=== PATIENT | male | born 1955 | race Caucasian/White ===

== ENCOUNTER 2021-01-09 13:07 | Emergency (ER) | payer MEDICARE, BC ==
[~2021-01-09] VITALS: Ht 182.9 cm; Wt 84.1 kg
[2021-01-09 13:39] VITALS: BP 30/88
[2021-01-09 14:25] LABS: BASOPHILS # (AUTO) 0.1 X10'3 (0-0.2); BASOPHILS % (AUTO) 0.7 % (0-1); EOSINOPHILS # (AUTO) 0.1 X10'3 (0-0.9); EOSINOPHILS % (AUTO) 1.5 % (0-6); HEMATOCRIT 38.2 % (42.0-52.0); HEMOGLOBIN 13.2 g/dl (14.0-17.9); LYMPHOCYTES # (AUTO) 1.3 X10'3 (1.1-4.8); LYMPHOCYTES % (AUTO) 16.4 % (21-51); MEAN CORPUSCULAR HEMOGLOBIN 32.9 PG (27.0-31.0); MEAN CORPUSCULAR HGB CONC 34.5 g/dL (33.0-36.5); MEAN CORPUSCULAR VOLUME 95.3 FL (78-98); MEAN PLATELET VOLUME 7.8 FL (7.4-10.4); MONOCYTES # (AUTO) 0.5 X10'3 (0-0.9); MONOCYTES % (AUTO) 6.3 % (2-12); NEUTROPHILS # (AUTO) 5.8 X10'3 (1.8-7.7); NEUTROPHILS % (AUTO) 75.1 % (42-75); PLATELET COUNT 208 X10'3 (140-440); RED BLOOD COUNT 4.01 X10'6 (4.70-6.10); RED CELL DISTRIBUTION WIDTH 14.6 % (11.5-14.5); WHITE BLOOD COUNT 7.8 X10'3 (4.5-11.0)
[2021-01-09 14:38] LABS: ALBUMIN 3.9 G/DL (3.4-5.0); ANION GAP 11 (8-16); BILIRUBIN,TOTAL 1.7 MG/DL (0.1-1.0); BLOOD UREA NITROGEN 19 MG/DL (7-18); BUN/CREATININE RATIO 17.1 (5.4-32.0); CHLORIDE 106 MMOL/L (99-107); CREATININE 1.11 MG/DL (0.60-1.10); GLUCOSE 112 MG/DL (70-104); POTASSIUM 3.9 MMOL/L (3.5-5.1); SODIUM 143 MMOL/L (135-145); TOTAL CARBON DIOXIDE 26.4 MMOL/L (24-32); TOTAL PROTEIN 7.2 G/DL (6.4-8.2); eGFR 66 ML/MIN
[2021-01-09 14:39] LABS: ALANINE AMINOTRANSFERASE 23 U/L (12-78); ALBUMIN/GLOBULIN RATIO 1.2 (1.1-1.5); ALKALINE PHOSPHATASE 58 IU/L (46-116); ASPARTATE AMINO TRANSFERASE 39 U/L (10-37)
== END 2021-01-09 15:59 | disposition home or self-care (01) ==
LOC: ER 13:08
DX: R07.89 Other chest pain (principal); I10 Essential (primary) hypertension; E78.00 Pure hypercholesterolemia, unspecified; M19.90 Unspecified osteoarthritis, unspecified site; Z72.89 Other problems related to lifestyle; Z87.81 Personal history of (healed) traumatic fracture
CPT/HCPCS: 36415; 71045; 80053; 83880; 84484; 85025; 93005; 99285

== ENCOUNTER 2024-11-28 11:24 | Emergency (ER) | payer MEDICARE, BC ==
[~2024-11-28] VITALS: Ht 182.9 cm; Wt 90.7 kg
--- NOTE | 2024-11-28 11:45 | Physician Documentation ---
History of Present Illness ~ Chief Complaint: Head Injury Stated Complaint: HEAD LAC HEAD PAIN FALL Time Seen by MD: 13:22 OK to notify your PCP?: Yes Primary Medical Doctor: Ryan Solis [employer] CONSULTANT HPI 69-year-old male presents to the emergency department complaining of left-sided headache, patient states he fell four days ago hitting his face on his lower safe, he has a large bruise, he has been taking 650 mg of aspirin 3 times a day for pain control, denies any GI bleeding. Occured: days ago Location of Pain/Injury: parietal Severity of Pain: mild Method of Injury: direct blow, fall Loss Of Consciousness: no loss of consciousness Associated Symptoms: Denies: nausea, vomiting Tetanus within 5 years?: No Medication Reconciliation Allergies: Coded Allergies: No Known Allergies (Unverified , 11/28/24) Past Medical History Past Medical History: Hypertension, Arthritis Past Surgical History: no surgical history Alcohol Use: Occasionally Lives In: Home Review of Systems All Other Systems at this time: Reviewed and Negative Constitutional: Reports: see HPI ENT: Reports: see HPI Neurological: Reports: headache Physical Exam Vital Signs: RN Vital Signs have been reviewed: Yes, Heart Rate: 102, Respi ratory Rate: 18, BP: 140/89, Pulse Oximetry: 98, Weight: 90.650 Oxygen Flow Rate: 0 Pulse Oximetry Reflects: adequate oxygenation General Appearance: alert, WD/WN, no apparent distress Head: contusions, ecchymosis, lacerations, swelling; No: active bleeding, Ng's Sign, raccoon eyes, tenderness Face: ecchymosis, tender, laceration; No: deformity, midface instability Pupils/EOM/Fundus: PERRLA, EOM intact Eye Lids: normal inspection Neck: non-tender, full range of motion Chest: no accessory muscle use, chest non-tender Back: normal inspection, no CVA tenderness, no vertebral tenderness Progress Results/Orders Results/Orders Vital Signs 11/28/24 11:28 Pulse 102 Resp 18 B/P (MAP) 140/89 Pulse Ox 98 O2 Flow Rate 0 EKG/XRAY/CT/US/VASC/MRI CT : Impression [address] [address] CAT SCAN Patient: ALAN VEE Medical Record: [id number] [facility] : 1955, Age: 69 Sex: Male Location: ER Patient Status: [facility] ER Service Date/Time: 11/28/241131 Ordering Physician: LOU VASQUEZ Exam: CT HEAD EXAM: CT CT HEAD INDICATION: FALL WITH HEADSTRIKE TECHNIQUE: CT of the head without intravenous contrast. Coronal and sagittal reformatted images are submitted. Radiation Dose : 1. Head: CT Dose: CTDI volume is 64.2 mGy. Dose-length product is 1175.2 mGy*cm The dose indicators for CT are the volume Computed Tomography (CT) Dose Index (CTDIvol) and the Dose Length Product (DLP), and are measured in units of mGy and mGy-cm, respectively. These indicators are not patient dose, but values generated from the CT scanner acquisition factors. The report includes radiation exposure data for exposures received during this examination. All CT scans at this medical facility are performed using dose modulation techniques as appropriate to a performed exam including the following: Automated exposure control was utilized; adjustment of the MA and/or KV according to patient size; and use of iterative reconstruction technique. COMPARISON: None FINDINGS: There is no evidence of acute intracranial hemorrhage, extra-axial collection, mass effect, midline shift, herniation or hydrocephalus. The ventricles, sulci and cisterns are age appropriate. The harris-white differentiation is intact. The visualized paranasal sinuses and mastoid air cells are clear. No depressed calvarial fracture. The surrounding soft tissues are unremarkable. IMPRESSION: 1. No evidence of acute intracranial abnormality. Electronically Signed by:KATHERYN DE LEON MD Date & Time: 11/28/24 1227 Dictated by: KATHERYN DE LEON MD Dictation date and time: 11/28/24 1200 Primary Care Provider: NO PRIMARY CARE PROVIDER cc: LOU VASQUEZ ~ [address] [address] CAT SCAN Patient: ALAN VEE Medical Record: [id number] [facility] : 1955, Age: 69 Sex: Male Location: ER Patient Status: [facility] ER Service Date/Time: 11/28/241131 Ordering Physician: LOU VASQUEZ Exam: CT CERVICAL SPINE EXAM: CT CT CERVICAL SPINE INDICATION: FALL WITH HEADSTRIKE EXAM DATE: 11/28/2024 12:11 PM COMPARISON: None TECHNIQUE: Noncontrast axial CT images of the cervical spine were performed. Sagittal and coronal reformatted images were obtained. Radiation optimization: All CT scans at this facility use at least one of these dose optimization te chniques: automated exposure control mA and/or kV adjustment per patient size (includes targeted exams where dose is matched to clinical indication) or iterative reconstruction. Radiation Dose Information: CT Dose: CTDI volume is 23.42 mGy. Dose-length product is 141.59 mGy*cm FINDINGS: No fracture or listhesis of the cervical spine. Cervical spinal canal is congenitally narrow. There is advanced degenerative disc disease and facet arthropathy. The AP dimension of the spinal canal measures 9 mm at C3-C4, 9.5 mm at C4-C5, 7 mm at C5-C6, 8.5 mm at C6-C7. There is significant neural foraminal stenosis C3-C4 bilaterally, C4-C5 bilaterally, C5-C6 on the right, C6- C7 on the right. IMPRESSION: 1. No fracture of the cervical spine. 2. 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 Recommend follow-up nonemergent noncontrast MRI of the cervical spine for better characterization as there may be mass effect on the cervical spinal cord at multiple levels. 3. Multilevel significant neural foraminal stenosis as detailed above. These findings May correspond to bilateral upper extremity radicular symptoms. These would also be better characterized with noncontrast MRI. Electronically Signed by:HAO RODRIGUEZ MD Date & Time: 11/28/24 1229 Dictated by: HAO RODRIGUEZ MD Dictation date and time: 11/28/24 1200 Primary Care Provider: NO PRIMARY CARE PROVIDER cc: LOU VASQUEZ ~ Medical Decision Making Differential Dx:Considerations: Include: Closed head injury, Cervical spine injury, Skull facture, Fracture, Contusion, Foreign body, Laceration, Intoxication-alcohol Departure Disposition: 01 HOME / SELF CARE / HOMELESS Impression: Primary Impression: Concussion Additional Impression: Injury of head Condition: Stable Discharge Instructions: Post Concussion Syndrome,Adult, Contusion (Bruise), Head Injuries, Adult Additional Instructions: There is no evidence of intracranial hemorrhage or skull fracture, use Tylenol for pain control, please avoid overdosing on aspirin or ibuprofen after injury as a both increased bleeding Referrals: NO PRIMARY CARE PROVIDER (PCP) Prescriptions No Active Prescriptions or Reported Meds Education Educated: Patient Educated regarding: diagnosis, treatment Additional Comment Medical Screen Exam History: This is a 69-year-old male who presents due to headaches and intermittent episodes of dizziness falling striking his head on a safe after tripping four days prior, patient reported possible loss of consciousness though reports he does not take blood thinners. Patient reports pain to his posterior neck and pain to his forehead though reports no other injuries. Exam: VITALS: Reviewed and as above. GENERAL: Alert, nontoxic appearing, no apparent distress. HEENT: A proximally 3 cm healing laceration to left forehead, left lower periorbital mild ecchymosis without significant swelling, PERRLA, EOMI without pain RESPIRATORY: No increased work of breathing, no respiratory distress, speaking in full clear sentences MSE performed in triage and patient returned to ED lobby by nursing staff to await available ED room, imaging ordered due to Fence head CT and C-spine rules The note accurately reflects work and decisions made by me.GERI Hernandez 11/28/24 11:45 Signature Scribe Signature: None Attestation: Dictated by myself LOU VASQUEZP Nov 28, 2024 11:45 FRANDY REECE DO Nov 28, 2024 13:34
--- NOTE | 2024-11-28 12:29 | RADIOLOGY REPORT ---
EXAM: CT CT HEAD INDICATION: FALL WITH HEADSTRIKE TECHNIQUE: CT of the head without intravenous contrast. Coronal and sagittal reformatted images are s ubmitted. Radiation Dose : 1. Head: CT Dose: CTDI volume is 64.2 mGy. Dose-length product is 1175.2 mGy*cm The dose indicators for CT are the volume Computed Tomography (CT) Dose Index (CTDIvol) and the Dose Length Product (DLP), and are measured in units of mGy and mGy-cm, respectively. These indicators are not patient dose, but values generated from the CT scanner acquisition factors. The report includes radiation exposure data for exposures received during this examination. All CT scans at this medical facility are performed using dose modulation techniques as appropriate to a performed exam including the following: Automated exposure control was utilized; adjustment of the MA and/or KV according to patient size; and use of iterative reconstruction technique. COMPARISON: None FINDINGS: There is no evidence of acute intracranial hemorrhage, extra-axial collection, mass effect, midline s hift, herniation or hydrocephalus. The ventricles, sulci and cisterns are age appropriate. The harris-white differentiation is intact. The visualized paranasal sinuses and mastoid air cells are clear. No depressed calvarial fracture. The surrounding soft tissues are unremarkable. IMPRESSION: 1. No evidence of acute intracranial abnormality.
--- NOTE | 2024-11-28 12:32 | RADIOLOGY REPORT ---
EXAM: CT CT CERVICAL SPINE INDICATION: FALL WITH HEADSTRIKE EXAM DATE: 11/28/2024 12:11 PM COMPARISON: None TECHNIQUE: Noncontrast axial CT images of the cervical spine were performed. Sagittal and coronal ref ormatted images were obtained. Radiation optimization: All CT scans at this facility use at least one of these dose optimization techniques: automated exposure control mA and/or kV adjustment per patie nt size (includes targeted exams where dose is matched to clinical indication) or iterative reconstr uction. Radiation Dose Information: CT Dose: CTDI volume is 23.42 mGy. Dose-length product is 141.59 mGy*cm FINDINGS: No fracture or listhesis of the cervical spine. Cervical spinal canal is congenitally narrow. There i s advanced degenerative disc disease and facet arthropathy. The AP dimension of the spinal canal blaine sures 9 mm at C3-C4, 9.5 mm at C4-C5, 7 mm at C5-C6, 8.5 mm at C6-C7. There is significant neural for aminal stenosis C3-C4 bilaterally, C4-C5 bilaterally, C5-C6 on the right, C6-C7 on the right. IMPRESSION: 1. No fracture of the cervical spine. 2. Congenital narrowing of the cervical spinal canal with superimposed spondylosis and facet arthropa thy causing [id number] spinal canal stenosis at C5-C6, mild spinal canal stenosis at other leve ls. Recommend follow-up nonemergent noncontrast MRI of the cervical spine for better characterizatio n as there may be mass effect on the cervical spinal cord at multiple levels. 3. Multilevel significant neural foraminal stenosis as detailed above. These findings May correspond to bilateral upper extremity radicular symptoms. These would also be better characterized with nonc ontrast MRI.
[2024-11-28 13:43] VITALS: BP 150/96; PULSE 74; RESP 15; O2SAT 99
== END 2024-11-28 13:46 | disposition home or self-care (01) ==
LOC: ER 11:24
DX: S06.0X0A Concussion without loss of consciousness, initial encounter (principal); S09.90XA Unspecified injury of head, initial encounter; I10 Essential (primary) hypertension; W19.XXXA Unspecified fall, initial encounter; Y93.89 Activity, other specified; Y92.89 Other specified places as the place of occurrence of the external cause; Y99.8 Other external cause status
CPT/HCPCS: 70450; 72125; 99284

== ENCOUNTER 2025-05-09 14:13 | Emergency (ER) | payer MEDICARE, BC ==
[~2025-05-09] VITALS: Ht 182.9 cm; Wt 88.0 kg
--- NOTE | 2025-05-09 14:32 | Physician Documentation ---
History of Present Illness ~ Chief Complaint: Mechanical Fall Stated Complaint: FALL/HEAD STRIKE Time Seen by MD: 14:31 Primary Medical Doctor: Ryan Solis NP Mode of Arrival: EMS HPI 70-year-old male presenting with a fall and head injury. He tells me was walking his dog, was rushing across the street, when he tripped and fell, landing on his face. He has multiple lacerations to his face. No definite loss of consciousness. He currently denies having a significant headache or other pain. He denies any arm or leg injuries. Unknown last tetanus shot Tetanus within 5 Years?: No Medication Reconciliation Allergies: Coded Allergies: No Known Allergies (Unverified , 11/28/24) Past Medical History Past Medical History: Hypertension, Arthritis Past Surgical History: no surgical history Alcohol Use: Occasionally Lives In: Home Review of Systems Neurological: Denies: headache Integumentary: Reports: laceration(s) Physical Exam Vital Signs: Heart Rate: 71, Respiratory Rate: 16, BP: 102/70, Pulse Oximetry: 97, Weight: 88.000 Oxygen Flow Rate: 0 Physical Exam General: This is a pleasant calm older man HEENT: The patient has several lacerations to his face There is a 3 cm full-thickness laceration to the forehead between the eyes, no active bleeding This is a 0.5 cm superficial laceration of the bridge of the nose, no active bleeding There is a 0.5 cm stellate laceration to the central chin, no active bleeding Heart: Regular rate and rhythm, normal-appearing peripheral perfusion Lungs: normal work of breathing, normal oxygen saturation on room air Neuro: Alert and oriented Psychiatric: Calm and cooperative with exam Procedures Laceration Repair : Location: Multiple lacerations to the face Anesthesia: none Prep: irrigated by nurse Foreign Body: not identified Repaired: skin Wound Repaired With: Dermabond Procedure Note The patient had multiple superficial lacerations, all of which were successfully repaired with skin glue. This includes a laceration on his chin, upper lip, nose, and forehead. Progress Results/Orders Results/Orders Orders - TED ANGEL MD Ct Head (05/09/25 15:23) Ct Cervical Spine (05/09/25 15:24) Completed Orders - TED ANGEL MD Ct Head (05/09/25 15:23) Ct Cervical Spine (05/09/25 15:24) Lidocaine 1% W/Epi 1:100,000 (Xylocaine (05/09/25 15:45) Vital Signs 05/09/25 05/09/25 05/09/25 05/09/25 14:16 14:19 14:20 14:53 Pulse 74 71 Resp 16 16 16 B/P (MAP) 102/70 102/70 (81) Pulse Ox 97 97 O2 Flow Rate 0 05/09/25 17:19 Temp 98.3 Pulse 78 Resp 16 B/P (MAP) 104/68 Pulse Ox 99 EKG/XRAY/CT/US/VASC/MRI CT : Impression I personally interpreted the CT scan, and this shows no acute fracture or intracranial hemorrhage Medical Decision Making Additional information obtaine: N/A Findings na Differential Dx:Considerations: Include: Closed head injury, Fracture(s), Contusion(s), Hematoma(s), Laceration(s) Additional Comment The patient presents with a fall and head injury. CT head and neck shows no fracture or hemorrhage. His wounds were cleaned and repaired with skin glue. He declined a tetanus shot. He will be discharged with home care instructions and return precautions. Departure Time of Disposition: 16:29 Disposition: 01 HOME / SELF CARE / HOMELESS Impression: Primary Impression: Face lacerations Additional Impression: Ground-level fall Condition: Improved Discharge Instructions: Laceration Care, Adult Referrals: NO PRIMARY CARE PROVIDER (PCP) Prescriptions No Active Prescriptions or Reported Meds Education Educated: Patient Educated regarding: diagnosis, treatment, need for follow up Signature Scribe Signature: na Attestation: TED Hernandez MD May 09, 2025 14:32
--- NOTE | 2025-05-09 15:44 | RADIOLOGY REPORT ---
EXAM: CT CT HEAD INDICATION: Fall, head injury, neck pain COMPARISON: CT CT HEAD on DOS: 11/28/24 TECHNIQUE: CT of the head without intravenous contrast. Radiation Dose Information: CT Dose: CTDI volume is 66 mGy. Dose-length product is 1205 mGy*cm The dose indicators for CT are the volume Computed Tomography (CT) Dose Index (CTDIvol) and the Dose Length Product (DLP), and are measured in units of mGy and mGy-cm, respectively. These indicators are not patient dose, but values generated from the CT scanner acquisition factors. The report includes radiation exposure data for exposures received during this examination. Findings: Scattered hypoattenuation in the periventricular and subcortical white matter, suggestive of chronic microvascular disease. The ventricles and sulci are mildly enlarged, compatible with generalized parenchymal volume loss. There is no mass- effect, hemorrhage, midline shift, or abnormal extra-axial fluid collection visible. No calvarial fracture. Left frontal scalp hematoma. Essentially clear visualized paranasal sinuses. Mastoid air cells are clear. IMPRESSION: No acute intracranial hemorrhage or mass effect. Left frontal scalp hematoma.
--- NOTE | 2025-05-09 15:46 | RADIOLOGY REPORT ---
EXAM: CT CT CERVICAL SPINE INDICATION: Fall, head injury, neck pain EXAM DATE: 05/09/2025 03:14 PM COMPARISON: CT CT CERVICAL SPINE on DOS: 11/28/24 TECHNIQUE: Multiple axial CT images of the cervical spine were obtained using bone algorithm. Axial and coronal reformatting was done. Bone and soft tissue windows were reviewed. Radiation Dose Information: CT Dose: CTDI volume is 21.3 mGy. Dose-length product is 471.6 mGy*cm FINDINGS: There is no acute displaced fracture. There are degenerative changes of the cervical spine characterized by endplate osteophytosis and intervertebral disc space narrowing, with partial fusion of C4-5. Degenerative uncovertebral and facet hypertrophy contribute to multilevel neural foraminal stenosis. The paraspinal soft tissues are unremarkable. IMPRESSION: 1. No acute displaced fracture. 2. Degenerative changes of the cervical spine as detailed. 3. If clinical symptoms persist, MRI may be beneficial in further evaluation. All CT scans at this medical facility are performed using dose modulation techniques as appropriate to a performed exam including the following: Automated exposure control was utilized; adjustment of the MA and/or KV according to patient size; and use of iterative reconstruction technique.
[2025-05-09] MEDS: LIDOcaine 1% W/epiNEPHrine 1:100,000 20ml vial SQ ONE (16:44)
[2025-05-09 17:19] VITALS: BP 104/68; PULSE 78; RESP 16; TEMP 98.3; O2SAT 99
== END 2025-05-09 17:21 | disposition home or self-care (01) ==
LOC: ER 14:13
DX: S01.81XA Laceration without foreign body of other part of head, initial encounter (principal); M19.90 Unspecified osteoarthritis, unspecified site; I10 Essential (primary) hypertension; Z72.89 Other problems related to lifestyle; W01.0XXA Fall on same level from slipping, tripping and stumbling without subsequent striking against object, initial encounter; Y93.K1 Activity, walking an animal; Y92.89 Other specified places as the place of occurrence of the external cause; Y99.8 Other external cause status
CPT/HCPCS: 12013; 70450; 72125; 99284; A6402; Z7610; A6449